=== PATIENT | female | born 1975 | race Hispanic/Latino ===

== ENCOUNTER 2018-10-16 17:42 | Emergency (ER) | payer OTHER ==
--- NOTE | 2018-10-16 18:10 | Emergency Department Report ---
Blank Doc - Documentation Documentation: 43 yo female presents with left sided chest pain intermittentt 07/30 gnawing, ac jermain type pain that started yesterday not getting better pmh of HTN: takes meds
[2018-10-16 18:46] LABS: Basophils # (Auto) 0.1 K/mm3 (0.0-0.1); Basophils % (Auto) 0.8 % (0.0-1.8); Eosinophils # (Auto) 0.1 K/mm3 (0.0-0.4); Eosinophils % (Auto) 1.7 % (0.0-4.3); Hematocrit 36.5 % (30.3-42.9); Lymphocytes # (Auto) 3.3 K/mm3 (1.2-5.4); Lymphocytes % (Auto) 39.7 % (13.4-35.0); Mean Corpuscular HGB Conc 33 % (30-34); Mean Corpuscular Volume 77 fl (79-97); Monocytes # (Auto) 0.5 K/mm3 (0.0-0.8); Monocytes % (Auto) 5.7 % (0.0-7.3); Platelet Count 456 K/mm3 (140-440); Red Blood Count 4.73 M/mm3 (3.65-5.03); Red Cell Distribution Width 15.9 % (13.2-15.2)
--- NOTE | 2018-10-16 19:08 | XRay Report ---
PROCEDURE: XR CHEST ROUTINE 2V TECHNIQUE: PA and lateral chest radiographs were obtained. HISTORY: Chest Pain COMPARISONS: None. FINDINGS: Heart: Normal. Mediastinum/Vessels: Normal. Lungs/Pleural space: Normal. Bony thorax: No acute osseous abnormality. IMPRESSION: Normal examination. This document is electronically signed by Tommie Yousif MD., October 16 2018 07:06:13 PM ET
[2018-10-16 19:12] LABS: BUN/Creatinine Ratio 13; Blood Urea Nitrogen 9 mg/dL (7-17); Calcium 8.9 mg/dL (8.4-10.2); Hemolysis Index 0
[2018-10-16] MEDS ORDERED: XYLOCAINE TOPICAL 4% TP ONE (20:19)
[2018-10-16] MEDS ORDERED: TORADOL IV ONE (20:19)
[2018-10-16] MEDS ORDERED: SOLU-Medrol IV ONE (20:19)
[2018-10-16] MEDS ORDERED: MAGNESIUM SULFATE 2GM/50ML 2 GM/50 ML BAG IV ONE (20:20)
[2018-10-16] MEDS ORDERED: REGLAN IV ONE (20:20)
--- NOTE | 2018-10-16 20:21 | Emergency Department Report ---
ED General Adult HPI - General Chief complaint: Chest Pain Stated complaint: HTN/HEADACHE/CHEST PAIN Time Seen by Provider: 10/16/18 18:07 Source: patient, RN notes reviewed Mode of arrival: Ambulatory Limitations: No Limitations - History of Present Illness Initial comments: This is a 44-year-old female. The patient is not known to this provider previ ously. The patient reports a history of hypertension, distant history of tubal ligation. The patient does not take oral contraceptives. She took aspirin today and yesterday. The patient presents with 2 complaints. First complaint is headache. The headache is frontal and right temporal. The headache started yesterday. The headache is constant. The headache is not sudden or thunderclap in nature. The headache is not maximal in intensity at onset. There is no endorsement of this being the worse headache of her life. There is no neck stiffness, neck pain, there is no vomiting, there is no change in visual acuity, no fevers or chills. 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 She reports getting at least 8 hours of sleep every day for work. The patient reports that she is up-to-date with her visual prescriptions. There is no otalgia, no ocular pain, no dental pain, no trismus or malocclusion. Her second complaint is chest wall pain. The chest wall pain is left-sided and inframammary. It radiates to the right lateral and posterior thorax. It is intermittent. It does not have exacerbating or relieving factors. The patient denies vomiting, diaphoresis, shortness of breath, leg pain, leg swelling. The patient denies urinary symptoms. The patient reports a recent road trip to [place]. She reports multiple stops. She denies exertional shortness of b reath. -: Gradual, hour(s) Location: head, chest Radiation: back Quality: aching Consistency: intermittent Improves with: rest Worsens with: movement - Related Data Allergies Allergy/AdvReac Type Severity Reaction Status Date / Time Latex, Natural Rubber Allergy Hives Verified 10/16/18 17:48 ED Review of Systems ROS: Stated complaint: HTN/HEADACHE/CHEST PAIN Other details as noted in HPI Constitutional: denies: diaphoresis, fever, malaise, weakness Eyes: denies: eye discharge ENT: denies: epistaxis Respiratory: denies: shortness of breath, SOB with exertion, SOB at rest Cardiovascular: chest pain. denies: palpitations, dyspnea on exertion Gastrointestinal: denies: abdominal pain, nausea, vomiting, hematemesis, melena, hematochezia Genitourinary: denies: dysuria Musculoskeletal: back pain Skin: denies: lesions Neurological: headache. denies: weakness, numbness, paresthesias, confusion Psychiatric: denies: anxiety ED Past Medical Hx - Past Medical History Previous Medical History?: Yes Hx Hypertension: Yes - Surgical History Past Surgical History?: Yes Hx Appendectomy: Yes Additional Surgical History: Breast reduction. C section - Social History Smoking Status: Current Every Day Smoker Substance Use Type: None ED Physical Exam - General Limitations: No Limitations General appearance: alert, in no apparent distress - Head Head exam: Present: atraumatic, normocephalic - Eye Eye exam: Present: normal appearance, PERRL, EOMI, other (visual acuity intact to finger counting, color perception, reading at a close distance). Absent: nystagmus - ENT ENT exam: Present: normal exam, normal orophraynx, mucous membranes moist, TM's normal bilaterally, normal external ear exam - Neck Neck exam: Present: normal inspection, full ROM. Absent: tenderness, meningismus - Respiratory Respiratory exam: Present: normal lung sounds bilaterally, chest wall tenderness, other (there is point tender reproducible chest wall and thoracic tenderness. There is no breast tenderness. Chaperoned by nurse STEPHENIE Brown). Absent: respiratory distress, wheezes, rales, rhonchi, stridor - Cardiovascular Cardiovascular Exam: Present: regular rate, normal rhythm. Absent: systolic murmur, diastolic murmur, rubs, gallop - GI/Abdominal GI/Abdominal exam: Present: soft. Absent: distended, tenderness, guarding, rebound, rigid, pulsatile mass - Extremities Exam Extremities exam: Present: normal inspection, full ROM, other (2+ pulses noted in the bilateral upper, lower extremities. Compartments soft. No long bony tenderness. The pelvis is stable.). Absent: pedal edema, joint swelling, calf tenderness - Back Exam Back exam: Present: normal inspection, full ROM. Absent: tenderness, CVA tenderness (R), CVA tenderness (L), paraspinal tenderness, vertebral tenderness - Neurological Exam Neurological exam: Present: alert, oriented X3, CN II-XII intact, normal gait, other (Extraocular movements intact. Tongue midline. No facial droop. Facial sensation intact to light touch in the V1, V2, V3 distribution bilaterally. 5 a nd 5 strength in 4 extremities.. Sensation is intact to light touch in 4 extremities.). Absent: motor sensory deficit - Psychiatric Psychiatric exam: Present: normal affect, normal mood - Skin Skin exam: Present: warm, dry, intact, normal color. Absent: rash ED Course Vital Signs 10/16/18 10/16/18 10/16/18 18:07 20:53 21:15 Temperature 98.2 F Pulse Rate 94 H 86 71 Respiratory 20 15 16 Rate Blood Pressure 117/107 Blood Pressure 151/106 125/75 [Right] O2 Sat by Pulse 96 98 100 Oximetry ED Medical Decision Making - Lab Data Result diagrams: 10/16/18 18:29 10/16/18 18:29 Vital Signs 10/16/18 10/16/18 10/16/18 18:07 20:53 21:15 Temperature 98.2 F Pulse Rate 94 H 86 71 Respiratory 20 15 16 Rate Blood Pressure 117/107 Blood Pressure 151/106 125/75 [Right] O2 Sat by Pulse 96 98 100 Oximetry Lab Results 10/16/18 10/16/18 10/16/18 Range/Units 18:29 18:29 20:42 WBC 8.4 (4.5-11.0) K/mm3 RBC 4.73 (3.65-5.03) M/mm3 Hgb 12.0 (10.1-14.3) gm/dl Hct 36.5 (30.3-42.9) % MCV 77 L (79-97) fl MCH 25 L (28-32) pg MCHC 33 (30-34) % RDW 15.9 H (13.2-15.2) % Plt Count 456 H (140-440) K/mm3 Lymph % (Auto) 39.7 H (13.4-35.0) % Atkinson % (Auto) 5.7 (0.0-7.3) % Eos % (Auto) 1.7 (0.0-4.3) % Baso % (Auto) 0.8 (0.0-1.8) % Lymph # 3.3 (1.2-5.4) K/mm3 Atkinson # 0.5 (0.0-0.8) K/mm3 Eos # 0.1 (0.0-0.4) K/mm3 Baso # 0.1 (0.0-0.1) K/mm3 Seg Neutrophils % 52.1 (40.0-70.0) % Seg Neutrophils # 4.4 (1.8-7.7) K/mm3 D-Dimer (0-234) ng/mlDDU Sodium 139 (137-145) mmol/L Potassium 3.6 (3.6-5.0) mmol/L Chloride 100.9 (98-107) mmol/L Carbon Dioxide 24 (22-30) mmol/L Anion Gap 18 mmol/L BUN 9 (7-17) mg/dL Creatinine 0.7 (0.7-1.2) mg/dL Estimated GFR > 60 ml/min BUN/Creatinine Ratio 13 % Glucose 113 H (65-100) mg/dL Calcium 8.9 (8.4-10.2) mg/dL Troponin T < 0.010 < 0.010 (0.00-0.029) ng/mL HCG, Quant (0-4) mIU/mL 10/16/18 10/16/18 Range/Units 20:42 20:42 WBC (4.5-11.0) K/mm3 RBC (3.65-5.03) M/mm3 Hgb (10.1-14.3) gm/dl Hct (30.3-42.9) % MCV (79-97) fl MCH (28-32) pg MCHC (30-34) % RDW (13.2-15.2) % Plt Count (140-440) K/mm3 Lymph % (Auto) (13.4-35.0) % Atkinson % (Auto) (0.0-7.3) % Eos % (Auto) (0.0-4.3) % Baso % (Auto) (0.0-1.8) % Lymph # (1.2-5.4) K/mm3 Atkinson # (0.0-0.8) K/mm3 Eos # (0.0-0.4) K/mm3 Baso # (0.0-0.1) K/mm3 Seg Neutrophils % (40.0-70.0) % Seg Neutrophils # (1.8-7.7) K/mm3 D-Dimer 149.79 (0-234) ng/mlDDU Sodium (137-145) mmol/L Potassium (3.6-5.0) mmol/L Chloride (98-107) mmol/L Carbon Dioxide (22-30) mmol/L Anion Gap mmol/L BUN (7-17) mg/dL Creatinine (0.7-1.2) mg/dL Estimated GFR ml/min BUN/Creatinine Ratio % Glucose (65-100) mg/dL Calcium (8.4-10.2) mg/dL Troponin T (0.00-0.029) ng/mL HCG, Quant < 2 (0-4) mIU/mL - EKG Data -: EKG Interpreted by Pa EKG shows normal: sinus rhythm Rate: normal - EKG Data When compared to previous EKG there are: previous EKG unavailable 10/16/18 21:40 EKG #1 shows sinus rhythm, 90 bpm, normal axis, QTC 445 ms, high left ventricular voltage, borderline atrial enlargement, this EKG is not consistent with ST elevation myocardial infarction. Nonspecific T wave abnormalities inferior leads. EKG #2 appears to be unchanged from prior. Neither EKG consistent with ST elevation myocardial infarction. - Radiology Data Radiology results: report reviewed, image reviewed X-ray of the chest is negative for acute disease - Medical Decision Making Differential diagnosis, including but not limited to: Primary headache, migraine headache, cluster headache, tension headache, headache etiology not otherwise specified Costochondritis, GERD, gastritis, acute coronary syndrome, pneumonia, pulmonary embolism Assessment and plan: 44-year-old female with 2 complaints. Headache history appears to sound benign. Patient does not endorse any red flag symptoms regarding her headache. Her headache is improved after supportive therapy. She can follow-up with a primary care doctor or neurologist for this. She has a GCS of 15. She has an NIH score of 0. She is resting quite comfortably on her stretcher. Her second complaint is chest pain, it appears to be reproducible chest wall pain, she is low risk for major adverse cardiac event as per the heart score. She is low risk by well's criteria, has a negative d-dimer, and perc negative Patient May follow up with an outpatient gauger delivery to complete her risk stratification. Patient medically suitable to follow-up at this point in time. We will discharge with instructions to follow-up. Return precautions are reviewed. Critical care attestation.: If time is entered above; I have spent that time in minutes in the direct care of this critically ill patient, excluding procedure time. ED Disposition Clinical Impression: Chest wall pain Headache Qualifiers: Headache chronicity pattern: unspecified pattern Intractability: not intractable Disposition: DC- TO HOME OR SELFCARE Is pt being admited?: No Does the pt Need Aspirin: No Condition: Good Additional Instructions: Continue outpatient medications. Continue bryo-mep-vnrygtk ibuprofen, acetaminophen as needed for headache and chest wall pain. Follow up with a gauger delivery within the next 3-5 days. Follow-up with the primary care doctor within the next 2-3 weeks for headache and hypertension management. Return to the emergency room right away with it, worsened or different symptoms, or symptoms not present on the initial emergency room evaluation. Referrals: [facility] [Provider Group] - 3-5 Days [facility] [Provider Group] - 3-5 Days [facility] [Provider Group] - 3-5 Days
[2018-10-16 22:04] VITALS: BP 126/77
== END 2018-10-16 22:04 | disposition home or self-care (01) ==
LOC: ED 17:42
DX: R07.89 Other chest pain (principal); R51 Headache; I10 Essential (primary) hypertension; F17.200 Nicotine dependence, unspecified, uncomplicated; Z98.51 Tubal ligation status; Z91.040 Latex allergy status; Z90.49 Acquired absence of other specified parts of digestive tract
CPT/HCPCS: 36415; 71046; 80048; 84484; 84702; 85025; 85379; 93005; 93010; 96365; 96375; 99284; J1885; J2765; J2930; J3475

== ENCOUNTER 2019-07-01 12:36 | Outpatient (CLI) | payer BC ==
[2019-07-01 13:26] LABS: Blood Urea Nitrogen 11 mg/dL (7-17)
--- NOTE | 2019-07-01 15:37 | Cat Scan Report ---
CTA of the chest with 3D Reconstruction Indication: ,R06.02 SHORTNESS OF BREATH/R07.2 PRECORDIAL PAIN Technique: TECHNIQUE: Axial CT images were obtained through the chest after injection of 100 cc of Omnipaque 350 IV contrast. 3 plane MIP reconstructions were produced. All CT scans at this location are performed using CT dose reduction for ALARA by means of automated exposure control. COMPARISON: None Automatic exposure control was utilized in an attempt to reduce radiation dose. Findings: Pulmonary arteries: The main pulmonary artery and right and left pulmonary artery branches fill satis factorily with contrast. No pulmonary embolus is seen. Lungs: The lungs are clear. Mediastinum: Heart size is normal. No adenopathy is seen. Aorta: Normal in diameter. No dissection seen within limits of this exam. There is a 3 x 1.8 cm right adrenal nodule which is partially imaged on this study. It measures 45 H ounsfield units on this arterial phase image. Impression: No pulmonary embolus is seen There is a 3 x 1.8 cm right adrenal nodule partially imaged on this exam. This could be a neoplastic etiology. This could represent an adrenal adenoma. CT imaging with precontrasted multiphase postcontr ast imaging (adrenal protocol) is recommended to further evaluate. As the patient received contrast t guillermo this need to be performed at a later date Signer Name: Reginald Awad MD Signed: 07/01/2019 3:33 PM Workstation Name: [id number]
== END 2019-07-01 12:37 | disposition home or self-care (01) ==
LOC: CT 12:36
PROVIDERS: ATTEND Internal Medicine Cardiovascular Disease
DX: R06.02 Shortness of breath (principal); R07.2 Precordial pain
CPT/HCPCS: 36415; 71275; 82565; 84520; Q9967

== ENCOUNTER 2019-07-02 08:23 | Outpatient (CLI) | payer BC | END 2019-07-02 08:24 | disposition home or self-care (01) | LOC: ECHO 08:23 | PROVIDERS: ATTEND Internal Medicine Cardiovascular Disease | DX: R06.02 Shortness of breath (principal) | CPT/HCPCS: 93306 ==

== ENCOUNTER 2019-08-28 09:10 | Outpatient (CLI) | payer BC ==
[2019-08-28 09:55] LABS: Blood Urea Nitrogen 7 mg/dL (7-17)
--- NOTE | 2019-08-28 12:08 | Cat Scan Report ---
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 TECHNIQUE: The patient received 100 cc Omnipaque [address] scans at this location are performed using CT dose reduction for ALARA by means of automated exposure control. COMPARISON: CTA of the chest 07/01/2019. FINDINGS: ABDOMEN: Noncontrast images demonstrate a 3.5 cm ovoid low density nodule in the right adrenal gland which measures -8 Hounsfield units. The nodule measures 25 Hounsfield units on corticomedullary phase images, 58 Hounsfield units on the nephrographic phase images and 6 Hounsfield units on pyelographic (delayed) phase images. The absolute washout is 78.8% and the relative washout is 89.7%. All of the measurements are consistent with a benign adenoma. There is moderate generalized decreased density of the liver parenchyma compared to the spleen with s paring adjacent to the gallbladder and jero hepatis. The gallbladder, bile ducts, pancreas, spleen, left adrenal gland, kidneys and bowel demonstrate no significant abnormality. No adenopathy is seen. The lung bases are clear. PELVIS: The distal ureters and urinary bladder are normal. The uterus and ovaries are normal. There a re bilateral tubal ligation devices. A normal appendix is present and there is no evidence of diverti culitis. No abnormal mass or fluid collection is seen. I do not identify a hernia. No acute osseous a bnormality is identified. IMPRESSION: 1. 3.5 cm right adrenal nodule is characteristic of a benign adenoma. 2. Moderate diffuse fatty infiltration of the liver. Signer Name: Miguel Brown MD Signed: 08/28/2019 12:03 PM Workstation Name: [id number]
== END 2019-08-28 09:11 | disposition home or self-care (01) ==
LOC: CT 09:10
PROVIDERS: ATTEND Family Medicine
DX: D35.01 Benign neoplasm of right adrenal gland (principal); K76.0 Fatty (change of) liver, not elsewhere classified
CPT/HCPCS: 36415; 74170; 74178; 82565; 84520; Q9967